=== PATIENT | male | born 1985 | race Caucasian/White ===

== ENCOUNTER 2022-04-03 12:30 | Emergency (ER) | payer MEDICAID ==
[2022-04-03] MEDS: diphenhydrAMINE 50 MG/ML SDV IVPUSH ONE (12:50)
[2022-04-03] MEDS: methylPREDNISolone Sodium Succinate 125 MG/2 ML SDV IVPUSH ONE (12:50)
== END 2022-04-03 13:35 | disposition home or self-care (01) ==
LOC: LB.ED 12:30
DX: T78.40XA Allergy, unspecified, initial encounter (principal); Z91.010 Allergy to peanuts; Z91.018 Allergy to other foods; Z79.899 Other long term (current) drug therapy
CPT/HCPCS: 96374; 96375; 99283; A0425; A0429; J1200; J2930